=== PATIENT | male | born 1955 | race Caucasian/White ===

== ENCOUNTER 2016-11-18 10:53 | Day surgery (SDC) | payer BC ==
[~2016-11-18 10:53] MED LIST: Lactated Ringers 1,000 ML IV SCH; Sodium Chloride 0.9% 10 ML Syringe FLUSH PRN
[2016-11-18] MEDS ORDERED: fentaNYL 100 MCG/2 ML SDV ONE ×2 (11:47→11:48)
[2016-11-18] MEDS ORDERED: Propofol 200 MG/20 ML SDV ONE ×2 (11:47→11:48)
[2016-11-18] MEDS ORDERED: Midazolam 1 MG/ML 2 ML SDV ONE ×2 (11:47→11:48)
--- NOTE | 2016-11-18 11:48 | PCM.PN ---
- General Info Date of Service: 11/18/16 - Review of Systems Systems Review Comment:: 61-year-old male referred for colonoscopy. He is medically stable to proceed today. He has been evaluated by cardiology and has a pacemaker in place. I discussed the proposed colonoscopy with the patient risks such as but not limited to bleeding and GI injury or reviewed. He appears to understand and agrees to proceed. - Patient Data Vitals - most recent: Last Vital Signs Temp 97.6 F 11/18/16 11:28 Pulse 60 11/18/16 11:28 Resp 20 11/18/16 11:28 BP 120/71 11/18/16 11:28 Pulse Ox 98 11/18/16 11:28 Weight - most recent: 100.698 kg Lab Results last 24 hrs: Laboratory Results - last 24 hr 11/18/16 Range/Units 11:23 POC Glucose 198 H (65-110) mg/dl Med Orders - Current: Current Medications Lactated Ringer's (Ringers, Lactated) 1,000 mls @ 125 mls/hr IV ASDIRECTED ADRIAN Last Admin: 11/18/16 11:39 Dose: 125 mls/hr Sodium Chloride (Saline Flush) 10 ml FLUSH ASDIRECTED PRN PRN Reason: Keep Vein Open - Problem List Review Problem List Initiated/Reviewed/Updated: Yes - Assessment Assessment:: Colon cancer screening - Plan Plan:: Colonoscopy
--- NOTE | 2016-11-18 12:28 | PCM.OPNOTE ---
- General Post-Op/Procedure Note Date of Surgery/Procedure: 11/18/16 Operative Procedure(s): Colonoscopy with Polypectomy Findings: Small Ascending Colon Polyp but otherwise normal colon Pre Op Diagnosis: History of colon polyps Post-Op Diagnosis: Colon Polyp Anesthesia Technique: MAC Primary Surgeon: Waldemar Carballo Pathology: Colon Polyp Output, Urine Amount: 0 EBL in mLs: 0 Complications: None Condition: Good
[2016-11-18 12:51] VITALS: BP 119/60
--- NOTE | 2016-11-18 16:50 | OR ---
Date of Procedure: 11/18/2016 PREOPERATIVE DIAGNOSIS: History of colon polyps. POSTOPERATIVE DIAGNOSIS: Colon polyp. OPERATION PERFORMED: Colonoscopy with polypectomy. INDICATIONS FOR SURGERY: A 61-year-old male who has a history of colon polyps. He says it has been about 10 years since his last colonoscopy, and he comes for this exam. FINDINGS: A single polyp was noted on today's exam. This is a 5 mm sessile polyp in the ascending colon. The remainder of the colon appears normal. PROCEDURE: The patient was taken to the operating room. He was given intravenous sedation and with him in the left lateral decubitus position. Digital rectal exam was performed showing no rectal masses. The Olympus colonoscope is inserted into the rectum. Retroflexed examination of the rectal canal is performed. The scope was then carefully advanced under direct visualization through the entire length of the colon until the cecum is reached. Cecal acquisition was confirmed by noting the normal internal cecal anatomy including the appendiceal orifice and ileocecal valve. The light was also noted to transilluminate the abdominal wall in the right lower quadrant. After examining the cecum, the scope was slowly withdrawn sequentially re-examining the colonic segments. During withdrawal of the scope, a small polyp in the ascending colon was identified and this was removed with a cautery snare and retrieved into a polyp trap. The scope was then further withdrawn reexamining the colon and once the entire colon and rectum had been fully examined, the scope was removed and the patient was taken from the operating room in satisfactory condition. ESTIMATED BLOOD LOSS: Zero. COMPLICATIONS: None. PROGNOSIS: Good. MIHIR Carballo MD /[id number]
== END 2016-11-18 13:30 | disposition home or self-care (01) ==
LOC: LL.SDS 10:53
PROVIDERS: ATTEND Surgery
PROC: 0DBK8ZZ Excision of Ascending Colon, Via Natural or Artificial Opening Endoscopic (ICD-10-PCS; principal; 2016-11-18)
DX: D12.2 Benign neoplasm of ascending colon (principal); I10 Essential (primary) hypertension; E11.9 Type 2 diabetes mellitus without complications; I25.10 Atherosclerotic heart disease of native coronary artery without angina pectoris; E78.5 Hyperlipidemia, unspecified; M10.9 Gout, unspecified; Z95.810 Presence of automatic (implantable) cardiac defibrillator; Z87.442 Personal history of urinary calculi
CPT/HCPCS: 45385; 82962; J2250; J2704; J3010; J7120

== ENCOUNTER 2020-07-10 10:13 | Day surgery (SDC) | payer BC, MEDICARE ==
--- NOTE | 2020-07-10 11:24 | PCM.PN ---
- General Info Date of Service: 07/10/20 - Review of Systems Systems Review Comment:: 65-year-old male with history of colon polyps here for surveillance colonoscopy. He states bowel function has been satisfactory recently although he did have a transient period of constipation not too long ago. Patient is medically stable to proceed today. His recent history and physical is reviewed and no significant changes are noted. I have discussed the proposed colonoscopy with the patient. He agrees to proceed accepting risks. - Patient Data Vitals - Most Recent: Last Vital Signs Temp 97.6 F 07/10/20 10:50 Pulse 63 07/10/20 10:50 Resp 18 07/10/20 10:50 BP 185/94 H 07/10/20 10:50 Pulse Ox 100 07/10/20 10:50 Weight - Most Recent: 97.976 kg Lab Results Last 24 Hours: Laboratory Results - last 24 hr 07/10/20 Range/Units 10:42 POC Glucose 94 (65-110) mg/dl Med Orders - Current: Current Medications Lactated Ringer's (Ringers, Lactated) 1,000 mls @ 125 mls/hr IV ASDIRECTED ADRIAN Last Admin: 07/10/20 10:45 Dose: 125 mls/hr Documented by: Sodium Chloride (Saline Flush) 10 ml FLUSH ASDIRECTED PRN PRN Reason: Keep Vein Open Sepsis Event Note - Focused Exam Vital Signs: Vital Signs Temp Pulse Resp BP Pulse Ox 07/10/20 10:50 97.6 F 63 18 185/94 H 100 - Problem List Review Problem List Initiated/Reviewed/Updated: Yes - Assessment Assessment:: History of colon polyps - Plan Plan:: Colonoscopy
[2020-07-10] MEDS ORDERED: Midazolam 1 MG/ML 2 ML SDV ONE (11:38)
[2020-07-10] MEDS ORDERED: Propofol 200 MG/20 ML SDV ONE (11:38)
--- NOTE | 2020-07-10 12:21 | PCM.OPNOTE ---
- General Post-Op/Procedure Note Date of Surgery/Procedure: 07/10/20 Operative Procedure(s): Colonoscopy with Polypectomy Findings: Multiple colon polyps Mild Sigmoid Diverticulosis Pre Op Diagnosis: History of colon polyps Post-Op Diagnosis: Colon Polyps. Sigmoid Diverticulosis Anesthesia Technique: MAC Primary Surgeon: Waldemar Carballo Pathology: Colon polyps EBL in mLs: 0 Complications: None Condition: Good
[2020-07-10 12:45] VITALS: BP 163/95; PULSE 60
--- NOTE | 2020-07-10 13:10 | OR ---
Date of Procedure: 07/10/2020 PREOPERATIVE DIAGNOSIS: History of colon polyps. POSTOPERATIVE DIAGNOSES: Colon polyps, sigmoid diverticulosis. OPERATIONS PERFORMED: Colonoscopy with polypectomy. INDICATIONS FOR SURGERY: This 65-year-old male has a known history of colon polyps and comes today for surveillance colonoscopy. FINDINGS: Three polyps were noted on today's exam. There is a 6-mm sessile polyp in the rectum 8 cm from the anal verge, there is an 11 mm sessile polyp in the sigmoid colon 25 cm from the anal verge, and an 8 mm semi-pedunculated polyp in the ascending colon. The patient also has a mild degree of sigmoid diverticulosis with a few diverticula which do not appear to be acutely inflamed, or otherwise, complicated. The remainder of the colon appears normal. DESCRIPTION OF PROCEDURE: The patient was taken to the operating room. He was given intravenous sedation, and with him in the left lateral decubitus position, digital rectal exam was performed showing no rectal masses. The Olympus colonoscope was inserted into the rectum. Retroflexed examination of the rectal canal was performed. In the rectum, the above-described rectal polyp was identified and this was removed grossly in its entirety with multiple bites of the biopsy forceps. The scope was then carefully advanced under direct visualization through the entire length of the colon until the cecum was reached. Cecal acquisition was confirmed by noting the normal internal cecal anatomy including the appendiceal orifice and the ileocecal valve. The light was also noted to transilluminate the abdominal wall in the right lower quadrant. After examining the cecum, the scope was slowly withdrawn sequentially re-examining the colonic segments. The other two above-described polyps were identified during withdrawal of the scope and each removed with a cautery snare and retrieved into a polyp trap. Examination was completed, and with no sign of any bleeding or any other complication, the scope was removed and the patient was taken from the operating room in satisfactory condition. ESTIMATED BLOOD LOSS: Zero. COMPLICATIONS: None. PROGNOSIS: Good. MIHIR Carballo MD /[id number]
== END 2020-07-10 13:01 | disposition home or self-care (01) ==
LOC: LL.SDS 10:13
PROVIDERS: ATTEND Surgery
DX: Z12.11 Encounter for screening for malignant neoplasm of colon (principal); D12.1 Benign neoplasm of appendix; D12.5 Benign neoplasm of sigmoid colon; K57.30 Diverticulosis of large intestine without perforation or abscess without bleeding; I25.10 Atherosclerotic heart disease of native coronary artery without angina pectoris; I42.8 Other cardiomyopathies; E11.9 Type 2 diabetes mellitus without complications; I11.9 Hypertensive heart disease without heart failure; I50.42 Chronic combined systolic (congestive) and diastolic (congestive) heart failure; Z98.890 Other specified postprocedural states; Z79.899 Other long term (current) drug therapy; Z79.84 Long term (current) use of oral hypoglycemic drugs; Z95.810 Presence of automatic (implantable) cardiac defibrillator
CPT/HCPCS: 00812; 82962; J2250; J2704; J7120

== ENCOUNTER 2023-11-24 09:46 | Day surgery (SDC) | payer BC, MEDICARE ==
[~2023-11-24 09:46] MED LIST changes: -Lactated Ringers 1,000 ML IV SCH; +Midazolam 1 MG/ML 2 ML SDV ONE; +Propofol 200 MG/20 ML SDV ONE; -Sodium Chloride 0.9% 10 ML Syringe FLUSH PRN
[2023-11-24] MEDS ORDERED: Sodium Chloride 0.9% 10 ML Syringe FLUSH PRN (10:00)
[2023-11-24] MEDS: Lactated Ringers 1,000 ML IV SCH (10:11)
[2023-11-24 10:45] LABS: GLUCOSE,POC 93 mg/dL (70-99)
[2023-11-24 17:26] VITALS: BP 115/68; PULSE 57
== END 2023-11-24 13:01 ==
LOC: LL.SDS 09:46
PROVIDERS: ATTEND Surgery
DX: Z12.11 Encounter for screening for malignant neoplasm of colon (principal); D12.0 Benign neoplasm of cecum; D12.2 Benign neoplasm of ascending colon; Z86.010 Personal history of colon polyps; I13.0 Hypertensive heart and chronic kidney disease with heart failure and stage 1 through stage 4 chronic kidney disease, or unspecified chronic kidney disease; I50.42 Chronic combined systolic (congestive) and diastolic (congestive) heart failure; E11.22 Type 2 diabetes mellitus with diabetic chronic kidney disease; N18.31 Chronic kidney disease, stage 3a; E03.9 Hypothyroidism, unspecified; I42.8 Other cardiomyopathies; Z79.4 Long term (current) use of insulin; Z79.82 Long term (current) use of aspirin; Z79.899 Other long term (current) drug therapy
CPT/HCPCS: 00811; 82947; J2250; J2704; J7120